=== PATIENT | female | born 1995 | race American Indian/Alaskan Native ===

== ENCOUNTER 2017-05-30 17:50 | Emergency (ER) | payer OTHER ==
--- NOTE | 2017-05-30 19:31 | Emergency Department Report ---
ED Lower Extremity HPI - General Chief Complaint: Extremity Injury, Lower Stated Complaint: LEFT FOOT INJURY, SWOLLEN Time Seen by Provider: 05/30/17 19:29 Source: patient, family Mode of arrival: Ambulatory Limitations: No Limitations - History of Present Illness Initial Comments: Patient here with left foot injury after slipping and falling. She reoprts ankle and foot pain 10 out of 10 that is throbbing and aching. Denies any head injury. That she was walking down some steps and she slipped off one step and twisted her ankle and her left foot. MD Complaint: ankle injury, foot injury -: This morning Injury: Ankle: Left (Pain and swelling), Foot: Left (pain and swelling) Type of Injury: other (fall and twisted left ankle and foot) Severity: severe Severity scale (0 -10): 10 Improves With: immobilization, rest Worsens With: weight bearing, movement, palpation Context: fall Associated Symptoms: swelling, unable to bear weight. denies: numbness, tingling, able to partially bear weight, ambulatory Treatments Prior to Arrival: cold therapy - Related Data Previous Rx's Medication Instructions Recorded Last Taken Type Acetaminophen/Codeine [Tylenol #3] 1 tab PO Q6H PRN #10 tab 12/03/13 Unknown Rx predniSONE [Deltasone] 20 mg PO QDAY #5 tab 12/03/13 Unknown Rx Prednisone 40 mg PO QDAY #3 day 09/09/14 Unknown Rx hydrOXYzine HCL [Atarax] 25 mg PO Q6HR PRN #20 tablet 09/09/14 Unknown Rx Acetaminophen/Codeine [Tylenol #3] 1 tab PO Q6H PRN #21 tab 12/03/14 Unknown Rx Gentamicin 0.3% Ophth Soln 1 drops OP Q4H #1 bottle 12/03/14 Unknown Rx Naproxen [Naprosyn TAB] 500 mg PO BID PRN #12 tablet 05/30/17 Unknown Rx Allergies Allergy/AdvReac Type Severity Reaction Status Date / Time No Known Allergies Allergy Unverified 10/01/13 17:32 ED Review of Systems ROS: Stated complaint: LEFT FOOT INJURY, SWOLLEN Other details as noted in HPI Comment: All other systems reviewed and negative Constitutional: no symptoms reported Respiratory: no symptoms reported Cardiovascular: denies: chest pain, palpitations, edema, syncope Gastrointestinal: denies: nausea, vomiting Musculoskeletal: joint swelling, arthralgia. denies: back pain, myalgia Skin: denies: rash Neurological: abnormal gait (due to lt foot and ankle swelling pain). denies: headache, numbness, paresthesias, confusion ED Past Medical Hx - Past Medical History Previous Medical History?: Yes Hx Asthma: Yes - Surgical History Past Surgical History?: No - Family History Family history: no significant - Social History Smoking Status: Current Every Day Smoker Substance Use Type: Alcohol, Marijuana - Medications Home Medications: Home Medications Medication Instructions Recorded Confirmed Last Taken Type Acetaminophen/Codeine [Tylenol #3] 1 tab PO Q6H PRN #10 tab 12/03/13 Unknown Rx predniSONE [Deltasone] 20 mg PO QDAY #5 tab 12/03/13 Unknown Rx Prednisone 40 mg PO QDAY #3 day 09/09/14 Unknown Rx hydrOXYzine HCL [Atarax] 25 mg PO Q6HR PRN #20 tablet 09/09/14 Unknown Rx Acetaminophen/Codeine [Tylenol #3] 1 tab PO Q6H PRN #21 tab 12/03/14 Unknown Rx Gentamicin 0.3% Ophth Soln 1 drops OP Q4H #1 bottle 12/03/14 Unknown Rx Naproxen [Naprosyn TAB] 500 mg PO BID PRN #12 tablet 05/30/17 Unknown Rx ED Physical Exam - General Limitations: No Limitations General appearance: alert, in no apparent distress - Head Head exam: Present: atraumatic, normocephalic - Eye Eye exam: Present: normal appearance, PERRL, EOMI. Absent: nystagmus Pupils: Present: normal accommodation - ENT ENT exam: Present: normal exam, normal orophraynx - Neck Neck exam: Present: normal inspection. Absent: tenderness, meningismus, full ROM, lymphadenopathy, other (No cspine tenderness) - Respiratory Respiratory exam: Present: normal lung sounds bilaterally. Absent: respiratory distress, chest wall tenderness - Cardiovascular Cardiovascular Exam: Present: regular rate, normal rhythm, normal heart sounds. Absent: systolic murmur, diastolic murmur - GI/Abdominal GI/Abdominal exam: Present: soft, normal bowel sounds. Absent: distended, tenderness, guarding, rebound, rigid, organomegaly, mass, bruit, pulsatile mass , hernia - Extremities Exam Extremities exam: Present: normal inspection, full ROM (Lrom lt foot/ankle), tenderness (lt foot/ankle pain), normal capillary refill, joint swelling (left ankle swelling), calf tenderness. Absent: pedal edema - Expanded Lower Extremity Exam Left Hip exam: Present: normal inspection, full ROM, pelvic stability. Absent: tenderness, swelling, abrasion, laceration, ecchymosis, deformity, crepidus, dislocation, erythema, external rotation, internal rotation, shortening Upper Leg exam: Present: normal inspection, full ROM. Absent: tenderness, swelling, abrasion, laceration, ecchymosis, deformity, crepidus, dislocation, erythema Knee exam: Present: normal inspection, full ROM, full knee extension. Absent: tenderness, swelling, abrasion, laceration, ecchymosis, deformity, crepidus, dislocation, erythema, effusion, pain w/ pronation/supination, posterior draw sign, pain/laxity with valgus, pain/laxity with varus Lower Leg exam: Present: normal inspection, full ROM. Absent: tenderness, swelling, abrasion, laceration, ecchymosis, deformity, crepidus, dislocation, erythema, palpable cord, Mukund's sign Ankle exam: Present: tenderness (lt ankle), swelling (left ankle). Absent: full ROM (LROM to left ankle due to pain/swelling), abrasion, laceration, ecchymosis, deformity, crepidus, dislocation, erythema Foot/Toe exam: Present: tenderness (lateral left foot), swelling (lateral left foot). Absent: normal inspection, full ROM (LROM left foot), abrasion, laceration, ecchymosis, deformity, crepidus, dislocation, erythema, amputation, puncture wound, foreign body, calcaneal tenderness, tenderness at base of 5th metatarsal, nail avulsion, subungual hematoma Neuro vascular tendon exam: Present: no vascular compromise, motor deficit ( decrease motor function left foot and ankle), significant pain with passive ROM of distal joint. Absent: pulse deficit, abnormal cap refill, sensory deficit, tendon deficit, extremity cold to touch, pallor, abnormal 2-point discrimination , decreased fine/light touch, foot drop, peroneal nerve deficit Gait: Positive: antalgic - Back Exam Back exam: Present: normal inspection, full ROM. Absent: tenderness, CVA tenderness (R), CVA tenderness (L), muscle spasm, paraspinal tenderness, vertebral tenderness, rash noted - Neurological Exam Neurological exam: Present: alert, oriented X3, abnormal gait, motor sensory deficit (abnormal motor function to lt foot and ankle due to injury), reflexes normal - Psychiatric Psychiatric exam: Present: normal affect, normal mood - Skin Skin exam: Present: warm, dry, intact, normal color. Absent: rash ED Course Vital Signs 05/30/17 18:02 Temperature 98.3 F Pulse Rate 93 H Respiratory 16 Rate Blood Pressure 132/79 O2 Sat by Pulse 98 Oximetry - Reevaluation(s) Reevaluation #1: 05/30/17 20:13 Patient received percocet 2 tabs in ED for pain to lt foot and ankle. Reevaluation #2: 05/30/17 21:04 Patient voiced relief of pain to her left foot and ankle. X-ray report shows the patient with soft tissue swelling to her left foot anterior laterally but no fracture or his location seen and x-ray of left foot and ankle. - Orthopedic Splinting/Casting Injury #1 Side: left Lower Extremity Injury Location: foot Lower Extremity Immobilizer: post-op shoe Other Orthopedic Equipment: crutches Additional Comments: No neurovascular deficit. ED Lower Extremity MDM - Radiology Data Radiology results: report reviewed X-ray of left ankle revealed no acute findings. X-ray of left foot revealed anteriolateral soft tissue swelling but no fracture or dislocation. - Medical Decision Making ED course: Patient status post left ankle and foot injury status post twisting her left ankle and foot while walking down some steps. Patient with arthralgia multiple sites, left foot sprain. An accidental fall. X-ray of left ankle and foot reveal no acute bony abnormality but patient with soft tissue swelling to left foot. X-ray report was discussed with the patient and I told her that she needs to rest, ice, compress and elevate affected area for 72 hours and if area becomes worse or not better that she is to follow-up with orthopedic doctor. She was given Percocet 5/325 2 tablets emergency room for left ankle and foot pain which she worse her pain has been relief. Patient's with postop shoe and crutches and instructed to not weight-bear to left lower extremity. Patient was understanding of diagnosis and treatment plan and discharged home with her family in stable condition with prescription for naproxen. Critical care attestation.: If time is entered above; I have spent that time in minutes in the direct care of this critically ill patient, excluding procedure time. ED Disposition Clinical Impression: Arthralgia of multiple sites Sprain of left foot Qualifiers: Encounter type: initial encounter Qualified Code(s): S93.602A - Unspecified sprain of left foot, initial encounter Injury of left ankle and foot Qualifiers: Encounter type: initial encounter Qualified Code(s): S99.912A - Unspecified injury of left ankle, initial encounter; S99.922A - Unspecified injury of left foot, initial encounter Disposition: TO HOME OR SELFCARE Is pt being admited?: No Does the pt Need Aspirin: No Condition: Stable Instructions: Foot Sprain (ED), Crutch Instructions (ED), Arthralgia (ED), RICE Therapy (ED) Additional Instructions: No weightbearing to left lower extremity Take medication as prescribed . Referred to discharge instruction on splint care. Referred to discharge instruction in Rice therapy. These follow-up with orthopedic doctor as instructed. Plstitches removed. Please keep affected area clean and dry Prescriptions: Naproxen [Naprosyn TAB] 500 mg PO BID PRN #12 tablet PRN Reason: Pain Referrals: FAIZA ANDUJAR MD [Staff Physician] - 2-3 Days Forms: Work/School Release Form(ED)
[2017-05-30] MEDS ORDERED: PERCOCET 5/325 PO ONE (19:50)
--- NOTE | 2017-05-30 19:50 | XRay Report ---
FINAL REPORT EXAM: XR FOOT 3+V LT HISTORY: left foot injury with pain TECHNIQUE: 3 views of left foot. PRIORS: None. FINDINGS: Joint spaces maintained. No apparent fracture or dislocation. Soft tissues grossly unremarkable. IMPRESSION: 1. No acute osseous abnormality.
--- NOTE | 2017-05-30 20:23 | XRay Report ---
FINAL REPORT EXAM: XR ANKLE 3+V LT HISTORY: twisted left foot and ankle. Pain, LT TECHNIQUE: 3 views of left ankle. PRIORS: None. FINDINGS: No apparent fracture or dislocation. Ankle mortise maintained. Anterolateral soft tissue edema. IMPRESSION: 1. No acute osseous abnormality. 2. Soft tissue edema.
[2017-05-31 03:20] VITALS: BP 125/73
== END 2017-05-31 03:19 | disposition home or self-care (01) ==
LOC: ED 17:50
DX: S93.402A Sprain of unspecified ligament of left ankle, initial encounter (principal); F17.210 Nicotine dependence, cigarettes, uncomplicated; F12.10 Cannabis abuse, uncomplicated; X58.XXXA Exposure to other specified factors, initial encounter; Y93.89 Activity, other specified; Y92.89 Other specified places as the place of occurrence of the external cause; Y99.8 Other external cause status
CPT/HCPCS: 99284